=== PATIENT | female | born 1995 | race African-American/Black ===

== ENCOUNTER 2017-02-08 00:27 | Emergency (ER) | payer OTHER ==
[~2017-02-08] VITALS: Ht 162.6 cm; Wt 50.0 kg
[~2017-02-08 00:27] MED LIST: NAPR-239 PO; birth control PO
[2017-02-08 00:29] VITALS: BP 120/78; PULSE 96; RESP 16; TEMP 99.1; O2SAT 99
[2017-02-08] MEDS ORDERED: AMOXICILLIN (TRIHYDRATE) 500 MG CAP PO ONE (02:45)
[2017-02-08] MEDS ORDERED: AMOX500T PO (02:46)
[2017-02-08] MEDS ORDERED: MAGICADU2 SWISH-SWAL (02:46)
--- NOTE | 2017-02-08 02:49 | PD ---
HPI Chief Complaint: ENT Complaint Time Seen by Provider: 02:47 Travel History International Travel<30 days: No Contact w/Intl Traveler<30days: No Traveled to known affect area: No History of Present Illness HPI 22-year-old black female presents emergency Department with a one-week history of sore throat. She has had subjective fever and chills at home, sore throat, congestion, cough, decreased appetite and general malaise. She states pain is mild to moderate. Worse with swallowing. No alleviating factors. No abdominal pain or urinary symptoms. No nausea or vomiting. No abdominal pain or diarrhea. No dysuria or frequency PFSH Past Medical History Medical History: Denies Significant Hx Diminished Hearing: No Immunizations Current: Yes Tetanus Vaccination: < 5 Years ?: Not LMP: 01/25/17 Past Surgical History Surgical History: No Previous Surgery Social History Alcohol Use: No Tobacco Use: No Substance Use: No Allergies-Medications (Allergen,Severity, Reaction): Coded Allergies: Sulfa (Verified Allergy, Intermediate, RASH, 02/08/17) Reported Meds & Prescriptions Reported Meds & Active Scripts Active Amoxicillin 500 Mg Tab 1,000 Mg PO BID Magic Mouthwash Adult Liq (Multi-Ingredient Mouthwash/Gargle) 120 Ml Susp 5 Ml SWISH-SWAL Q2HR Each 5mL contains: Nystatin 200,000units, Diphenhydramine 4.25mg, Viscous Lidocaine 10mg, Corona syrup 0.8 mL Naproxen EC (Naproxen) 375 Mg Tabdr 375 Mg PO BID PRN Reported [ control] 1 Tab PO DAILY Review of Systems Except as stated in HPI: all other systems reviewed are Neg Physical Exam Narrative GENERAL: Well-developed, well-nourished in no acute distress. Nontoxic appearing. HEAD: Normocephalic, atraumatic. EYES: Pupils equal round and reactive. Extraocular motions intact. No scleral icterus. No injection or drainage. ENT: TMs clear without erythema. The external auditory canals clear. Nose: clear . Posterior pharynx is erythematous and moist. Positive tonsillar edema with a small amount of white exudate. Uvula midline. Airway patent. NECK: Trachea midline.Supple, nontender, moves head freely. No central bony tenderness or spasm. Few tonsillar lymphadenopathy CARDIOVASCULAR: Regular rate and rhythm without murmurs, gallops, or rubs. RESPIRATORY: Clear to auscultation. Breath sounds equal bilaterally. No wheezes , rales, or rhonchi. GASTROINTESTINAL: Abdomen soft, non-tender, nondistended. No hepato-splenomegaly , or palpable masses. No guarding. EXTREMITIES: No clubbing, cyanosis, or edema. No joint tenderness, effusion, or edema noted. BACK: Nontender without deformity or crepitance. No flank tenderness. Data Data Last Documented VS Vital Signs Date Time Temp Pulse Resp B/P Pulse Ox O2 Delivery O2 Flow Rate FiO2 02/08/17 00:29 99.1 96 16 120/78 99 Room Air Orders Amoxicillin (Trimox) (02/08/17 02:45) MDM Medical Decision Making Medical Screen Exam Complete: Yes Emergency Medical Condition: Yes Medical Record Reviewed: Yes Differential Diagnosis MDM: High Differential diagnoses: Strep throat, viral pharyngitis, mono, peritonsillar abscess, retropharyngeal abscess, Noah's angina Narrative Course Patient is given amoxicillin 500 mg by mouth. This is acute pharyngitis Diagnosis Primary Impression: Acute pharyngitis Qualified Code: J02.9 - Acute pharyngitis, unspecified etiology Patient Instructions: General Instructions Additional Instructions: Rest. Force fluids. Saltwater gargles. Tylenol and Advil. Chloraseptic [place] Cepastat lozenge. Amoxicillin and Magic mouthwash. Follow-up with a primary care doctor in one week. Return to the ER if any problems. Med/Other Pt SpecificInfo: Prescription(s) given Scripts Amoxicillin 500 Mg Tab1,000 Mg PO BID #40 TAB Prov:Alice Bennett DO 02/08/17 Oojmmqvs-Ckvbyxizfgojrdp-Snvsbodln Liq (Magic Mouthwash Adult Liq)120 Ml Susp5 Ml SWISH-SWAL Q2HR #120 ML Each 5mL contains: Nystatin 200,000units, Diphenhydramine 4.25mg, Viscous Lidocaine 10mg, Corona syrup 0.8 mL Prov:Alice Bennett DO 02/08/17 Disposition: 01 DISCHARGE HOME Condition: Stable Rick Hadley Feb 08, 2017 02:49
== END 2017-02-08 03:49 | disposition home or self-care (01) ==
LOC: NEPD 00:27
DX: J02.9 Acute pharyngitis, unspecified (principal); R50.9 Fever, unspecified; R05 Cough; R53.81 Other malaise; R63.0 Anorexia
CPT/HCPCS: 99282